=== PATIENT | male | born 1970 | race Caucasian/White ===

== ENCOUNTER → 2017-08-09 | Outpatient (CLI) | payer OTHER ==
[~2017-08-09] VITALS: Ht 177.8 cm; Wt 99.8 kg
[~2017-08-09] MED LIST: CLARITIN10 MG PO; LOMAIRA8 MG PO
--- NOTE | ~2017-08-09 | HPC ---
[facility] [address] [place] [address] PAIN MANAGEMENT CONSULTATION Name: LUCIO BOOTHANTHONY Slaughter Room #: REG CINDYCici Matson#: [id number] Admission: 08/09/17 Attend Phys: Raghu Lopez DO Discharge: Date of : 70 Report #: [id number] THIS REPORT FOR: //name// CC: Indira Lopez DATE OF SERVICE: 08/09/2017 The patient is a 46-year-old gentleman, referred by Dr. Indira Rincon for evaluation of pain, primarily neck, left shoulder, arm in a C6 distribution. 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 He has tried physical therapy, nonsteroidal anti-inflammatory medications with nominal efficacy. He does not desire any opiate analgesics. He is very desirous of returning to work. He enjoys his job very much. He is bothered by the paresthesia and pain in the neck, left shoulder, going into the thumb and index finger. He describes constant, shooting, cramping, aching pain. He rates it anywhere from 3-8 on a VAS. Denies any specific myelopathic symptoms. REVIEW OF SYSTEMS: Complete review of systems is attached to chart and gone over with the patient. He is , does not smoke, drink alcohol to excess. He has enjoyed remarkably good health. The 12-point review of systems otherwise noncontributory (negative). He continues to work, active duty [employer]. Pain impact score averages about 27-38/70. PHYSICAL EXAMINATION: He is a 5 feet 10 inches, 220 pound gentleman, BMI is 31.6 kg per meter squared, blood pressure 103/66, pulse 91, respirations 16. Cranial nerves 2-12 grossly intact. Pupils equal, reactive to light and accommodation. Extraocular muscles are intact. Cervical range of motion is modestly limited. Has a positive Lhermitte's, symptoms radiating to the left. Upper extremity strength is generally preserved, he is a fairly muscular gentleman. He subjectively notes decreased left arm strength. Hand grasp is symmetric. Deep tendon reflexes are generally preserved. Heart is regular and rhythmical without murmur. Lungs clear to auscultation. Diffuse tenderness in the thoracic paravertebral muscles and splenius capitis. He does have a positive straight leg raise on the right, trace edema in the right knee. Assessment is symptomatic cervical radiculopathy by clinical exam and history of some component of degenerative joint disease, right knee, does have a lumbar radicular component, right neural tensioning syndrome, appears to be relatively inconsequential at present. The patient has an MRI from approximately 1 year ago. Unfortunately, [place] [address] PAIN MANAGEMENT CONSULTATION Name: SMILEY BOOTH Room #: REG SHANON Matson#: [id number] Admission: 08/09/17 Attend Phys: Raghu Lopez DO Discharge: Date of : 70 Report #: [id number] have those results. He will bring the disk at his next visit. ASSESSMENT: Symptomatic cervical radiculopathy by clinical exam and history, having failed conservative therapy. RECOMMENDATIONS: We will seek authorization for cervical epidural injection under fluoroscopy. Thank you for allowing me to participate in the patient's care. I will keep you abreast of his progress. <ELECTRONICALLY SIGNED> By: Raghu Lopez DO 08/12/17 [id number] Raghu Lopez DO /nt
[2017-08-09 13:15] VITALS: BP 103/66
== END ==
LOC: PAIN 07:20
DX: M54.12 Radiculopathy, cervical region (principal); M25.512 Pain in left shoulder